=== PATIENT | female | born 1945 | race Caucasian/White ===

== ENCOUNTER 2018-08-12 15:19 | Emergency (ER) | payer MEDICARE, BC, OTHER ==
[~2018-08-12] VITALS: Ht 160 cm; Wt 89.5 kg
[2018-08-12] MEDS ORDERED: METF10004 PO (16:17)
[2018-08-12] MEDS ORDERED: VITATAB11 PO (16:17)
[2018-08-12] MEDS ORDERED: SERO50TA PO (16:17)
[2018-08-12] MEDS ORDERED: LISI10TA4 PO (16:17)
[2018-08-12] MEDS ORDERED: FLEC50HA PO (16:17)
[2018-08-12] MEDS ORDERED: DIGO0.12 PO (16:17)
[2018-08-12] MEDS ORDERED: BONI150T PO (16:17)
[2018-08-12] MEDS ORDERED: JANU100T PO (16:17)
[2018-08-12] MEDS ORDERED: ELIQ5TAB PO (16:17)
[2018-08-12] MEDS ORDERED: XALA0.007 OP (16:17)
[2018-08-12] MEDS ORDERED: VITA100T59 PO (16:17)
[2018-08-12] MEDS ORDERED: WOMETAB9 PO (16:17)
[2018-08-12] MEDS ORDERED: LORA-243 PO (16:17)
[2018-08-12] MEDS ORDERED: LEVO125T4 PO (16:17)
--- NOTE | 2018-08-12 16:51 | REP ---
Left knee series: Six views. History: Trauma. Findings: Single view of the left knee demonstrate patellofemoral, medial and lateral tibiofemoral osteoarthritis. There is medial compartment joint space narrowing and sclerosis in addition to spurring. Lateral view shows superior pole nonarticular spurring on the patella as well. There is no visible fracture or subluxation. Some diffuse osteopenia is noted. Impression: Three compartment osteoarthritis. No fracture seen. Electronically Signed by William Rivers MD 08/12/2018 04:42 P
[2018-08-12 17:04] VITALS: BP 163/86
== END 2018-08-12 17:18 | disposition home or self-care (01) ==
LOC: M ED 15:19 → EDBD 15:19 → M ED 17:18
DX: S01.81XA Laceration without foreign body of other part of head, initial encounter (principal); S00.91XA Abrasion of unspecified part of head, initial encounter; S80.02XA Contusion of left knee, initial encounter; I11.0 Hypertensive heart disease with heart failure; I50.9 Heart failure, unspecified; E11.9 Type 2 diabetes mellitus without complications; W10.1XXA Fall (on)(from) sidewalk curb, initial encounter; Y92.414 Local residential or business street as the place of occurrence of the external cause

== ENCOUNTER → 2022-12-22 | Outpatient (CLI) | payer MEDICARE, BC, OTHER ==
[~2022-12-22] MED LIST: BONI1TAB PO; DIGO0.123 PO; ELIQ5TAB PO; FLEC50HA PO; JANU100T PO; LEVO125T4 PO; LISI10TA22 PO; LORA-243 PO; METF10004 PO; SERO50TA PO; VITA100T59 PO; VITATAB11 PO; WOMETAB9 PO; XALA0.007 OP
[2022-12-22 16:51] LABS: ALBUMIN 3.1 G/DL (3.2-5.2); ALKALINE PHOSPHATASE 63 U/L (46-116); ALT/SGPT 12 U/L (7.0-40); AST/SGOT 15 U/L (<34); BILIRUBIN,TOTAL 0.5 MG/DL (0.3-1.2); BLOOD UREA NITROGEN 12 MG/DL (9-23); CALCIUM LEVEL 8.9 MG/DL (8.3-10.6); CARBON DIOXIDE LEVEL 32 MMOL/L (20-31); CHLORIDE LEVEL 104 MMOL/L (98-107); CHOLESTEROL LEVEL 132 MG/DL (<200); CHOLESTEROL RISK RATIO 2.56 (<5); CREATININE FOR GFR 0.94 MG/DL (0.55-1.30); GLOMERULAR FILTRATION RATE > 60.0 (>39); GLUCOSE, FASTING 165 MG/DL (74-106); HDL CHOLESTEROL 51.4 MG/DL (>40); LDL CHOLESTEROL 53.2 MG/DL (<100); NON-HDL-C 80.6 MG/DL; POTASSIUM SERUM 4.7 MMOL/L (3.5-5.1); SODIUM LEVEL 140 MMOL/L (136-145); TOTAL PROTEIN 6.2 G/DL (5.7-8.2); TRIGLYCERIDES LEVEL 137 MG/DL (<150)
[2022-12-22 17:45] LABS: HEMOGLOBIN A1c 6.7 % (4.0-6.0)
== END ==
LOC: M WUC 11:09
PROVIDERS: ATTEND Physician Assistant
DX: I10 Essential (primary) hypertension (principal); E11.9 Type 2 diabetes mellitus without complications; E78.5 Hyperlipidemia, unspecified

== ENCOUNTER → 2023-08-14 | Outpatient (CLI) | payer MEDICARE, BC, OTHER ==
[2023-08-14 13:12] LABS: HEMATOCRIT 46.3 % (36.0-47.0); HEMOGLOBIN 14.5 g/dl (12.0-15.5); MEAN CORPUSCULAR HEMOGLOBIN 30.3 pg (27.0-33.0); MEAN CORPUSCULAR HGB CONC 31.3 g/dl (32.0-36.5); MEAN CORPUSCULAR VOLUME 96.7 fl (80.0-96.0); PLATELET COUNT, AUTOMATED 285 10^3/uL (150-450); RED BLOOD COUNT 4.79 10^6/uL (4.00-5.40); WHITE BLOOD COUNT 9.8 10^3/uL (4.0-10.0)
[2023-08-14 13:43] LABS: HEMOGLOBIN A1c 7.2 % (4.0-6.0)
[2023-08-14 13:46] LABS: ALBUMIN 3.5 G/DL (3.2-5.2); BILIRUBIN,TOTAL 0.5 MG/DL (0.3-1.2); CALCIUM LEVEL 9.3 MG/DL (8.3-10.6); CHOLESTEROL RISK RATIO 2.85 (<5); CREATININE FOR GFR 1.1 MG/DL (0.55-1.30); GLOMERULAR FILTRATION RATE 51.3 (>39); HDL CHOLESTEROL 48.3 MG/DL (>40); LDL CHOLESTEROL 48.5 MG/DL (<100); NON-HDL-C 89.7 MG/DL; POTASSIUM SERUM 4.5 MMOL/L (3.5-5.1); THYROID STIMULATING HORMONE 1.678 uIU/ML (0.55-4.78); TOTAL PROTEIN 6.8 G/DL (5.7-8.2)
== END ==
LOC: M WUC 09:24
PROVIDERS: ATTEND Physician Assistant
DX: E11.9 Type 2 diabetes mellitus without complications (principal); I10 Essential (primary) hypertension; I48.0 Paroxysmal atrial fibrillation; E78.5 Hyperlipidemia, unspecified

== ENCOUNTER 2023-11-18 17:56 | Emergency (ER) | payer MEDICARE, BC ==
[~2023-11-18] VITALS: Ht 157.5 cm; Wt 86.4 kg
[2023-11-18] MEDS ORDERED: AMBI5TAB PO (18:56)
[2023-11-18] MEDS: methocarbamoL 750 MG TAB PO ONE (20:34)
[2023-11-18 21:56] VITALS: BP 125/66; TEMP 98; O2SAT 99
[2023-11-18] MEDS ORDERED: MEDR4PAK PO (21:57)
[2023-11-18] MEDS ORDERED: METH-1165 PO (21:57)
== END 2023-11-18 22:11 | disposition home or self-care (01) ==
LOC: M ED 17:56
DX: M54.30 Sciatica, unspecified side (principal); J02.9 Acute pharyngitis, unspecified; I48.91 Unspecified atrial fibrillation; E11.9 Type 2 diabetes mellitus without complications; I10 Essential (primary) hypertension; Z79.01 Long term (current) use of anticoagulants; Z79.84 Long term (current) use of oral hypoglycemic drugs; Z88.6 Allergy status to analgesic agent; Z88.1 Allergy status to other antibiotic agents; Z88.8 Allergy status to other drugs, medicaments and biological substances

== ENCOUNTER → 2024-01-19 | Outpatient (CLI) | payer MEDICARE, BC ==
[~2024-01-19] MED LIST changes: +AMBI5TAB PO; +MEDR4PAK PO; +METH-1165 PO
== END ==
LOC: M WUC 10:45
PROVIDERS: ATTEND Ophthalmology
DX: Z13.5 Encounter for screening for eye and ear disorders (principal)

== ENCOUNTER → 2024-01-19 | Outpatient (CLI) | payer MEDICARE, BC ==
[2024-01-19 14:46] LABS: VITAMIN B12 LEVEL > 2000 PG/ML (211-911)
[2024-01-20 07:35] LABS: TOTAL 25(OH) VITAMIN D 91.6 NG/ML (20.0-100.0)
[2024-01-20 07:36] LABS: HEMOGLOBIN A1c 6.4 % (4.0-6.0)
[2024-01-23 16:08] LABS: HOMOCYST(E)INE SERUM 10.7 umol/L (0.0-19.2); VITAMIN B6,PYRIDOXAL PHOSPHATE 15.9 ug/L (3.4-65.2)
== END ==
LOC: M WUC 10:42
PROVIDERS: ATTEND Physician Assistant
DX: E11.9 Type 2 diabetes mellitus without complications (principal); H40.1132 Primary open-angle glaucoma, bilateral, moderate stage; H35.3131 Nonexudative age-related macular degeneration, bilateral, early dry stage; H16.223 Keratoconjunctivitis sicca, not specified as Sjogren's, bilateral; Z13.5 Encounter for screening for eye and ear disorders; Z79.899 Other long term (current) drug therapy

== ENCOUNTER → 2024-06-23 | Outpatient (CLI) | payer MEDICARE, BC | LOC: M PLAIMG 10:48 | PROVIDERS: ATTEND Physician Assistant | DX: I48.0 Paroxysmal atrial fibrillation (principal); I27.81 Cor pulmonale (chronic) ==

== ENCOUNTER 2024-08-30 11:19 | Inpatient (IN) | payer MEDICARE, BC ==
[~2024-08-30] VITALS: Ht 160 cm; Wt 92.3 kg
[~2024-08-30 11:19] MED LIST changes: -XALA0.007 OP; +XALA0.007 OU
[2024-08-30 12:57] LABS: VENOUS BASE EXCESS 4.3 (-2.0-2.0); VENOUS HCO3 29.5 MMOL/L (23.0-27.0); VENOUS O2 SATURATION 46.6 % (60.0-80.0); VENOUS PARTIAL PRESSURE CO2 46.4 mmHg (38.0-50.0); VENOUS PARTIAL PRESSURE O2 26.1 mmHg (30.0-50.0); VENOUS PH 7.421 UNITS (7.330-7.430); VENOUS STANDARD HCO3 27.1 MMOL/L; VENOUS TOTAL CO2 30.9 MMOL/L (24.0-28.0)
[2024-08-30 13:09] LABS: BASO % 0.1 % (0.0-1.0); HEMATOCRIT 35.6 % (36.0-47.0); LYMPH # 0.9 10^3/uL (1.5-5.0); LYMPH % 6.4 % (24.0-44.0); MEAN CORPUSCULAR HEMOGLOBIN 31.6 pg (27.0-33.0); MEAN CORPUSCULAR HGB CONC 33.7 g/dl (32.0-36.5); MEAN CORPUSCULAR VOLUME 93.7 fl (80.0-96.0); MONO # 1.6 10^3/uL (0.0-0.8); MONO % 11.5 % (2.0-8.0); NEUTROPHILS # 11.6 10^3/uL (1.5-8.5); NEUTROPHILS % 81.5 % (36.0-66.0); PLATELET COUNT, AUTOMATED 164 10^3/uL (150-450); WHITE BLOOD COUNT 14.2 10^3/uL (4.0-10.0)
[2024-08-30 13:35] LABS: ALBUMIN 2.6 G/DL (3.2-5.2); BILIRUBIN,DIRECT 0.3 MG/DL (<0.4); BILIRUBIN,TOTAL 0.8 MG/DL (0.3-1.2); CREATININE FOR GFR 1.11 MG/DL (0.55-1.30); GLOMERULAR FILTRATION RATE 50.6 (>39); POTASSIUM SERUM 3.8 MMOL/L (3.5-5.1); TOTAL PROTEIN 6.3 G/DL (5.7-8.2)
[2024-08-30 13:37] LABS: THYROID STIMULATING HORMONE 10.4 uIU/ML (0.55-4.78)
[2024-08-30] MEDS ORDERED: ISOVUE-370 76% 100ML VIAL As Ordered ONE (14:02)
[2024-08-30 14:36] LABS: KETONE, URINE AUTO RFX TRACE mg/dL (NEGATIVE); LEUKOCYTE ESTERASE UR AUTO RFX 3+ (NEGATIVE); MUCUS, URINE RFX SMALL (NEGATIVE); NITRITE, URINE AUTO RFX NEGATIVE (NEGATIVE); RBC, URINE AUTO RFX 45 /HPF (0-3); SQUAM EPITHELIAL CELL UR AURFX 1 /HPF (0-6); WBC, URINE AUTO RFX TNTC /HPF (0-3)
[2024-08-30] MEDS: cefTRIAXone SOD 2 GM in DEXTROSE 5% (D5W) ADV/MINI-BAG 50 ML IV ONE (15:06)
[2024-08-30] MEDS ORDERED: LISI5TAB11 PO (15:46)
[2024-08-30] MEDS ORDERED: IBAN150T10 PO (15:46)
[2024-08-30] MEDS ORDERED: ASCO500T PO (15:46)
[2024-08-30] MEDS ORDERED: VENL150C43 PO (15:48)
[2024-08-30] MEDS ORDERED: BUPR-71 PO (15:48)
[2024-08-30] MEDS ORDERED: FARX1TAB5 PO (15:48)
[2024-08-30] MEDS ORDERED: LORA-1041 PO (15:48)
[2024-08-30] MEDS ORDERED: SIMV40TA20 PO (15:48)
[2024-08-30] MEDS ORDERED: METO1TAB7 PO (15:48)
[2024-08-30] MEDS ORDERED: HOME MED LIST COMPLETE! XX SCH (15:50)
[2024-08-30 16:00] LABS: FREE T4 0.54 NG/DL (0.89-1.76)
[2024-08-30] MEDS: ACETAMINOPHEN 500 MG TAB PO ONE (16:17)
[2024-08-30] MEDS ORDERED: GLUCOSE 4 GM CHEW PO PRN (16:55)
[2024-08-30] MEDS ORDERED: GLUCAGON INJ 1MG VIAL SC PRN (16:55)
[2024-08-30] MEDS ORDERED: DEXTROSE 50% 50ML SYRINGE IV PRN (16:55)
[2024-08-30] MEDS: INSULIN LISPRO (NovoLOG) PER UNIT SC SCH ×2 (17:30→21:00)
[2024-08-30] MEDS: APIXABAN 5 MG TAB (ELIQUIS) PO SCH (20:16)
[2024-08-30] MEDS: METOPROLOL SUCC (TopROL XL) 50MG **XL** TAB PO SCH (20:16)
[2024-08-30] MEDS: LR 1,000 ML IV SCH (20:16)
[2024-08-30] MEDS: QUEtiapine FUMARATE 50MG TAB PO SCH (20:16)
[2024-08-30 20:59] VITALS: BP 122/54; TEMP 97.7; O2SAT 95
[2024-08-30] MEDS ORDERED: zolPIDEM TARTRATE 5 MG TAB PO PRN (21:00)
[2024-08-30] MEDS: LATANOPROST 0.005% OPHTH SOLN 2.5 ML OU SCH (21:51)
[2024-08-31] VITALS (8 sets, daily range): BP systolic 97–142; BP diastolic 53–86; TEMP 96.8–97.9; O2SAT 93–96
[2024-08-31] MEDS: LEVOTHYROXINE 150MCG TABLET (0.15MG) PO SCH (05:21)
[2024-08-31] MEDS ORDERED: LEVOTHYROXINE 125MCG TABLET (0.125MG) PO SCH (06:00)
[2024-08-31 06:19] LABS: HEMATOCRIT 37.3 % (36.0-47.0); HEMOGLOBIN 12.5 g/dl (12.0-15.5); MEAN CORPUSCULAR HEMOGLOBIN 31.5 pg (27.0-33.0); MEAN CORPUSCULAR HGB CONC 33.5 g/dl (32.0-36.5); PLATELET COUNT, AUTOMATED 171 10^3/uL (150-450); RED BLOOD COUNT 3.97 10^6/uL (4.00-5.40); WHITE BLOOD COUNT 13.1 10^3/uL (4.0-10.0)
[2024-08-31 06:47] LABS: CALCIUM LEVEL 8.8 MG/DL (8.3-10.6); CREATININE FOR GFR 1.12 MG/DL (0.55-1.30); GLOMERULAR FILTRATION RATE 50.1 (>39); POTASSIUM SERUM 3.4 MMOL/L (3.5-5.1)
[2024-08-31] MEDS: buPROPion **SR TABLET** (ZYBAN) 150MG PO SCH (08:50)
[2024-08-31] MEDS: lisinopriL 5 MG TAB PO SCH (08:51)
[2024-08-31] MEDS: ASCORBIC ACID 500 MG TAB PO SCH (08:51)
[2024-08-31] MEDS: SIMVASTATIN 40 MG TAB PO SCH (08:51)
[2024-08-31] MEDS: VENLAFAXINE **XR** 75MG CAPSULE PO SCH (08:52)
[2024-08-31] MEDS ORDERED: cefTRIAXone SOD 1 GM in DEXTROSE 5% (D5W) ADV/MINI-BAG 50 ML IV SCH (09:00)
[2024-08-31] MEDS: PIPERACILLIN/TAZOBACTAM SOD 3.375 GM in DEXTROSE 5% (D5W) ADV/MINI-BAG 50 ML IV SCH (11:17)
[2024-08-31] MEDS: ACETAMINOPHEN 325 MG TAB PO PRN (12:29)
[2024-08-31 13:22] LABS: PROCALCITONIN 1.13 ng/ml
[2024-09-01] VITALS (8 sets, daily range): BP systolic 94–139; BP diastolic 50–64; TEMP 97–97.3; O2SAT 90–96
[2024-09-01 06:18] LABS: HEMATOCRIT 31.8 % (36.0-47.0); HEMOGLOBIN 10.7 g/dl (12.0-15.5); MEAN CORPUSCULAR HEMOGLOBIN 31.4 pg (27.0-33.0); MEAN CORPUSCULAR HGB CONC 33.6 g/dl (32.0-36.5); MEAN CORPUSCULAR VOLUME 93.3 fl (80.0-96.0); PLATELET COUNT, AUTOMATED 179 10^3/uL (150-450); RED BLOOD COUNT 3.41 10^6/uL (4.00-5.40); WHITE BLOOD COUNT 9.8 10^3/uL (4.0-10.0)
[2024-09-01 06:38] LABS: CALCIUM LEVEL 8.3 MG/DL (8.3-10.6); CREATININE FOR GFR 1.39 MG/DL (0.55-1.30); POTASSIUM SERUM 3.5 MMOL/L (3.5-5.1)
[2024-09-01] MEDS: LR 1,000 ML IV SCH (09:24)
[2024-09-01] MEDS: AMOXICILLIN 500 MG CAP PO SCH (09:42)
[2024-09-02 04:00] VITALS: BP 121/62; TEMP 97.7; O2SAT 95
[2024-09-02 05:54] LABS: HEMATOCRIT 30.5 % (36.0-47.0); HEMOGLOBIN 10.3 g/dl (12.0-15.5); MEAN CORPUSCULAR HEMOGLOBIN 31.7 pg (27.0-33.0); MEAN CORPUSCULAR HGB CONC 33.8 g/dl (32.0-36.5); MEAN CORPUSCULAR VOLUME 93.8 fl (80.0-96.0); PLATELET COUNT, AUTOMATED 198 10^3/uL (150-450); RED BLOOD COUNT 3.25 10^6/uL (4.00-5.40); WHITE BLOOD COUNT 8.1 10^3/uL (4.0-10.0)
[2024-09-02 06:10] LABS: CALCIUM LEVEL 7.6 MG/DL (8.3-10.6); CREATININE FOR GFR 1.19 MG/DL (0.55-1.30); GLOMERULAR FILTRATION RATE 46.7 (>39); POTASSIUM SERUM 3.5 MMOL/L (3.5-5.1)
[2024-09-02] MEDS ORDERED: LEVO150T7 PO (08:42)
[2024-09-02] MEDS ORDERED: AMOX500C PO (08:42)
[2024-09-02 12:00] VITALS: BP 133/59; TEMP 97.7; O2SAT 97
== END 2024-09-02 14:03 | disposition home or self-care (01) | DRG 872 ==
LOC: M ED 11:19 → EDBD 11:19 → M ED INP 16:52 → M MSPAV 20:59
PROVIDERS: ADMIT Student in an Organized Health Care Education/Training Program; ATTEND Student in an Organized Health Care Education/Training Program
DX: A41.9 Sepsis, unspecified organism (principal); N12 Tubulo-interstitial nephritis, not specified as acute or chronic; F39 Unspecified mood [affective] disorder; I48.91 Unspecified atrial fibrillation; Z66 Do not resuscitate; E03.9 Hypothyroidism, unspecified; E11.22 Type 2 diabetes mellitus with diabetic chronic kidney disease; N18.9 Chronic kidney disease, unspecified; I12.9 Hypertensive chronic kidney disease with stage 1 through stage 4 chronic kidney disease, or unspecified chronic kidney disease; G47.00 Insomnia, unspecified; H91.90 Unspecified hearing loss, unspecified ear; B96.20 Unspecified Escherichia coli [E. coli] as the cause of diseases classified elsewhere; H40.9 Unspecified glaucoma; E78.5 Hyperlipidemia, unspecified; Z79.01 Long term (current) use of anticoagulants; Z79.890 Hormone replacement therapy; Z79.84 Long term (current) use of oral hypoglycemic drugs; Z79.899 Other long term (current) drug therapy; Z88.2 Allergy status to sulfonamides; Z88.1 Allergy status to other antibiotic agents; Z88.8 Allergy status to other drugs, medicaments and biological substances

== ENCOUNTER 2024-10-12 12:27 | Inpatient (IN) | payer MEDICARE, BC ==
[~2024-10-12] VITALS: Ht 165.1 cm; Wt 85.6 kg
[~2024-10-12 12:27] MED LIST changes: +AMOX500C PO; +ASCO500T PO; +BUPR-71 PO; +FARX1TAB5 PO; +IBAN150T10 PO; +LEVO150T7 PO; +LISI5TAB11 PO; +LORA-1041 PO; +METO1TAB7 PO; +SIMV40TA20 PO; +VENL150C43 PO
[2024-10-12 13:56] LABS: BASO % 0.1 % (0.0-1.0); EOS % 0.1 % (0.0-3.0); HEMOGLOBIN 13.1 g/dl (12.0-15.5); LYMPH # 0.6 10^3/uL (1.5-5.0); LYMPH % 3.5 % (24.0-44.0); MEAN CORPUSCULAR HEMOGLOBIN 30.5 pg (27.0-33.0); MEAN CORPUSCULAR HGB CONC 32.8 g/dl (32.0-36.5); MONO # 0.9 10^3/uL (0.0-0.8); MONO % 5.7 % (2.0-8.0); NEUTROPHILS # 14.9 10^3/uL (1.5-8.5); NEUTROPHILS % 90.1 % (36.0-66.0); PLATELET COUNT, AUTOMATED 181 10^3/uL (150-450); WHITE BLOOD COUNT 16.6 10^3/uL (4.0-10.0)
[2024-10-12] MEDS: ACETAMINOPHEN 325 MG TAB PO ONE (14:18)
[2024-10-12 14:35] LABS: ALBUMIN 2.9 G/DL (3.2-5.2); ALKALINE PHOSPHATASE 65 U/L (35-104); ALT/SGPT 19 U/L (7.0-40); AST/SGOT 15 U/L (<34); BILIRUBIN,TOTAL 0.9 MG/DL (0.3-1.2); BLOOD UREA NITROGEN 12 MG/DL (9-23); CARBON DIOXIDE LEVEL 28 MMOL/L (20-31); CHLORIDE LEVEL 96 MMOL/L (98-107); CREATININE FOR GFR 0.72 MG/DL (0.55-1.30); GLOMERULAR FILTRATION RATE > 60.0 (>39); GLUCOSE, FASTING 244 MG/DL (74-106); POTASSIUM SERUM 3.6 MMOL/L (3.5-5.1); SODIUM LEVEL 135 MMOL/L (136-145); TOTAL PROTEIN 6.9 G/DL (5.7-8.2)
[2024-10-12 14:43] LABS: PROTEIN, URINE MANUAL REFLEX 3+ mg/dL (NEGATIVE); SP GRAVITY,URINE MANUAL REFLEX 1.015 (1.002-1.035)
[2024-10-12 14:44] LABS: KETONE, URINE MANUAL REFLEX 1+ mg/dL (NEGATIVE); NITRITE, URINE MANUAL RFX NEGATIVE (NEGATIVE); UROBILINOGEN, UA MANUAL REFLEX NORMAL (NORMAL)
[2024-10-12 14:57] LABS: HYALINE CAST, URINE RFX NONE SEEN /lpf (0-1); MUCUS, URINE REFLEX LARGE AMOUNT (NEGATIVE); SQUAMOUS EPITHELIAL URINE RFX SMALL AMOUNT /hpf (SMALL AMT)
[2024-10-12 14:58] LABS: MICROSCOPIC EXAM RFX PERFORMED
[2024-10-12 15:10] LABS: ERYTHROCYTE SEDIMENTATION RATE 60 mm/hr (0-30)
[2024-10-12 15:11] LABS: VENOUS BASE EXCESS 4.5 (-2.0-2.0); VENOUS HCO3 27.6 MMOL/L (23.0-27.0); VENOUS O2 SATURATION 95.6 % (60.0-80.0); VENOUS PARTIAL PRESSURE CO2 35.9 mmHg (38.0-50.0); VENOUS PARTIAL PRESSURE O2 77.1 mmHg (30.0-50.0); VENOUS PH 7.504 UNITS (7.330-7.430); VENOUS STANDARD HCO3 28.5 MMOL/L; VENOUS TOTAL CO2 28.7 MMOL/L (24.0-28.0)
[2024-10-12 15:17] LABS: PROCALCITONIN 2.91 ng/ml
[2024-10-12] MEDS: cefTRIAXone SOD 2 GM in DEXTROSE 5% (D5W) ADV/MINI-BAG 50 ML IV ONE (15:18)
[2024-10-12] MEDS: NS (Normal Saline) 0.9% 1,710 ML in IV 1 EA IV STA (15:19)
[2024-10-12 15:27] LABS: C REACTIVE PROTEIN QUANTITATIV 30.09 MG/DL (<1.0)
[2024-10-12 15:53] LABS: LIPASE 23 U/L (12-53)
[2024-10-12 15:55] LABS: BILIRUBIN,DIRECT 0.3 MG/DL (<0.4)
[2024-10-12 15:56] LABS: OSMOLALITY SERUM 288 MOSM/KG (280-301)
[2024-10-12] MEDS ORDERED: MOM 30ML SUSPENSION UDC PO PRN (16:00)
[2024-10-12 16:15] LABS: HEMOGLOBIN A1c 6.7 % (4.0-6.0)
[2024-10-12] MEDS ORDERED: ISOVUE-370 76% 100ML VIAL As Ordered ONE (16:21)
[2024-10-12] MEDS ORDERED: GLUCOSE 4 GM CHEW PO PRN (16:30)
[2024-10-12] MEDS ORDERED: GLUCAGON INJ 1MG VIAL SC PRN (16:30)
[2024-10-12] MEDS ORDERED: DEXTROSE 50% 50ML SYRINGE IV PRN (16:30)
[2024-10-12] MEDS ORDERED: FLEC25TA PO (16:45)
[2024-10-12] MEDS ORDERED: HOME MED LIST COMPLETE! XX SCH (16:50)
[2024-10-12] MEDS: lisinopriL 5 MG TAB PO SCH (18:24)
[2024-10-12] MEDS: INSULIN LISPRO (NovoLOG) PER UNIT SC SCH ×2 (18:25→22:31)
[2024-10-12 20:24] LABS: THYROID STIMULATING HORMONE 0.671 uIU/ML (0.55-4.78)
[2024-10-12] MEDS: LATANOPROST 0.005% OPHTH SOLN 2.5 ML OU SCH (22:41)
[2024-10-12] MEDS: FLECAINIDE 50MG TABLET PO SCH (22:41)
[2024-10-12] MEDS: DOCUSATE SODIUM 100MG CAPSULE PO SCH (22:44)
[2024-10-12] MEDS: METOPROLOL SUCC (TopROL XL) 50MG **XL** TAB PO SCH (22:45)
[2024-10-12] MEDS: APIXABAN 5 MG TAB (ELIQUIS) PO SCH (22:45)
[2024-10-13] VITALS (7 sets, daily range): BP systolic 150–190; BP diastolic 70–94; TEMP 97.5–98.6; O2SAT 93–99
[2024-10-13 05:09] LABS: BASO % 0.2 % (0.0-1.0); HEMATOCRIT 38.7 % (36.0-47.0); HEMOGLOBIN 12.5 g/dl (12.0-15.5); LYMPH # 1.1 10^3/uL (1.5-5.0); LYMPH % 5.7 % (24.0-44.0); MEAN CORPUSCULAR HEMOGLOBIN 30.6 pg (27.0-33.0); MEAN CORPUSCULAR HGB CONC 32.3 g/dl (32.0-36.5); MEAN CORPUSCULAR VOLUME 94.6 fl (80.0-96.0); MONO # 1.3 10^3/uL (0.0-0.8); MONO % 6.6 % (2.0-8.0); NEUTROPHILS # 16.6 10^3/uL (1.5-8.5); NEUTROPHILS % 86.8 % (36.0-66.0); PLATELET COUNT, AUTOMATED 167 10^3/uL (150-450); RED BLOOD COUNT 4.09 10^6/uL (4.00-5.40); WHITE BLOOD COUNT 19.1 10^3/uL (4.0-10.0)
[2024-10-13] MEDS: LEVOTHYROXINE 150MCG TABLET (0.15MG) PO SCH (05:35)
[2024-10-13] MEDS: ACETAMINOPHEN 325 MG TAB PO PRN (05:35)
[2024-10-13 05:36] LABS: BLOOD UREA NITROGEN 16 MG/DL (9-23); CALCIUM LEVEL 8.5 MG/DL (8.3-10.6); CARBON DIOXIDE LEVEL 26 MMOL/L (20-31); CHLORIDE LEVEL 97 MMOL/L (98-107); CREATININE FOR GFR 0.64 MG/DL (0.55-1.30); GLOMERULAR FILTRATION RATE > 60.0 (>39); GLUCOSE, FASTING 214 MG/DL (74-106); POTASSIUM SERUM 3.3 MMOL/L (3.5-5.1); SODIUM LEVEL 136 MMOL/L (136-145)
[2024-10-13] MEDS: LORATADINE 10 MG TAB PO SCH (07:59)
[2024-10-13] MEDS: POTASSIUM CHLORIDE 10MEQ SR TABLET PO ONE (07:59)
[2024-10-13] MEDS: buPROPion **SR TABLET** (ZYBAN) 150MG PO SCH (07:59)
[2024-10-13] MEDS: VENLAFAXINE **XR** 75MG CAPSULE PO SCH (07:59)
[2024-10-13] MEDS: SIMVASTATIN 40 MG TAB PO SCH (08:00)
[2024-10-13] MEDS: ASCORBIC ACID 500 MG TAB PO SCH (08:00)
[2024-10-13] MEDS: KETOROLAC 30 MG/ML 1ML VIAL IV PRN (12:17)
[2024-10-13] MEDS: cefTRIAXone SOD 2 GM in DEXTROSE 5% (D5W) ADV/MINI-BAG 50 ML IV SCH (15:22)
[2024-10-13] MEDS: LORazepam 1 MG TAB PO ONE (17:40)
[2024-10-13] MEDS ORDERED: PROHANCE 279.3MG/ML 5ML VIAL As Ordered ONE (18:08)
[2024-10-13] MEDS ORDERED: PROHANCE 279.3MG/ML 15ML VIAL As Ordered ONE (18:09)
[2024-10-14 00:46] VITALS: BP 176/72
[2024-10-14] MEDS: KETOROLAC 30 MG/ML 1ML VIAL IV PRN (00:53)
[2024-10-14] MEDS: LISINOPRIL *2.5 MG* TAB PO ONE (01:45)
[2024-10-14 03:27] VITALS: BP 158/83; TEMP 99.2; O2SAT 95
[2024-10-14 06:23] LABS: BASO % 0.2 % (0.0-1.0); EOS # 0.1 10^3/uL (0.0-0.5); EOS % 0.4 % (0.0-3.0); HEMATOCRIT 33.9 % (36.0-47.0); LYMPH # 1.4 10^3/uL (1.5-5.0); LYMPH % 9.8 % (24.0-44.0); MEAN CORPUSCULAR HGB CONC 32.4 g/dl (32.0-36.5); MEAN CORPUSCULAR VOLUME 92.4 fl (80.0-96.0); MONO # 1.5 10^3/uL (0.0-0.8); MONO % 10.7 % (2.0-8.0); NEUTROPHILS % 78.3 % (36.0-66.0); PLATELET COUNT, AUTOMATED 164 10^3/uL (150-450); RED BLOOD COUNT 3.67 10^6/uL (4.00-5.40)
[2024-10-14 06:38] LABS: BLOOD UREA NITROGEN 21 MG/DL (9-23); CALCIUM LEVEL 8.1 MG/DL (8.3-10.6); CARBON DIOXIDE LEVEL 28 MMOL/L (20-31); CHLORIDE LEVEL 100 MMOL/L (98-107); CREATININE FOR GFR 0.76 MG/DL (0.55-1.30); GLOMERULAR FILTRATION RATE > 60.0 (>39); GLUCOSE, FASTING 182 MG/DL (74-106); POTASSIUM SERUM 3.6 MMOL/L (3.5-5.1); SODIUM LEVEL 137 MMOL/L (136-145)
[2024-10-14 12:00] VITALS: BP 140/82; TEMP 98; O2SAT 96
[2024-10-14] MEDS: MORPHINE 4 MG/ML 1ML VIAL IV PRN (16:28)
[2024-10-14] MEDS: ACETAMINOPHEN 325 MG TAB PO SCH (18:54)
[2024-10-14] MEDS: KETOROLAC 30 MG/ML 1ML VIAL IV SCH (18:55)
[2024-10-14 19:43] VITALS: BP 144/71; TEMP 98.6; O2SAT 94
[2024-10-14] MEDS: LORazepam 2 MG TAB PO ONE ×2 (20:28→21:07)
[2024-10-14] MEDS: LIDOCAINE 5% (LIDODERM) PATCH TD SCH (21:38)
[2024-10-15] VITALS (8 sets, daily range): BP systolic 149–157; BP diastolic 68–77; TEMP 97–99.2; O2SAT 86–96
[2024-10-15] MEDS: VANCOMYCIN HCL 1,000 MG, VIAL MATE ADAPTER 1 EACH in NS 250 ML IV ONE (01:30)
[2024-10-15 06:08] LABS: BASO % 0.3 % (0.0-1.0); EOS # 0.2 10^3/uL (0.0-0.5); EOS % 1.8 % (0.0-3.0); HEMATOCRIT 33.2 % (36.0-47.0); HEMOGLOBIN 10.8 g/dl (12.0-15.5); LYMPH # 1.4 10^3/uL (1.5-5.0); LYMPH % 15.1 % (24.0-44.0); MEAN CORPUSCULAR HEMOGLOBIN 30.4 pg (27.0-33.0); MEAN CORPUSCULAR HGB CONC 32.5 g/dl (32.0-36.5); MEAN CORPUSCULAR VOLUME 93.5 fl (80.0-96.0); MONO # 1.1 10^3/uL (0.0-0.8); MONO % 12.4 % (2.0-8.0); NEUTROPHILS # 6.4 10^3/uL (1.5-8.5); NEUTROPHILS % 69.9 % (36.0-66.0); PLATELET COUNT, AUTOMATED 176 10^3/uL (150-450); RED BLOOD COUNT 3.55 10^6/uL (4.00-5.40); WHITE BLOOD COUNT 9.2 10^3/uL (4.0-10.0)
[2024-10-15 06:42] LABS: BLOOD UREA NITROGEN 21 MG/DL (9-23); CALCIUM LEVEL 7.8 MG/DL (8.3-10.6); CARBON DIOXIDE LEVEL 28 MMOL/L (20-31); CHLORIDE LEVEL 102 MMOL/L (98-107); CREATININE FOR GFR 0.77 MG/DL (0.55-1.30); GLOMERULAR FILTRATION RATE > 60.0 (>39); GLUCOSE, FASTING 186 MG/DL (74-106); POTASSIUM SERUM 3.7 MMOL/L (3.5-5.1); SODIUM LEVEL 138 MMOL/L (136-145)
[2024-10-15 08:22] LABS: C REACTIVE PROTEIN QUANTITATIV 15.93 MG/DL (<1.0)
[2024-10-15 08:27] LABS: ERYTHROCYTE SEDIMENTATION RATE 62 mm/hr (0-30)
[2024-10-15 08:29] LABS: PROCALCITONIN 0.97 ng/ml
[2024-10-15 08:32] LABS: ALBUMIN 2.2 G/DL (3.2-5.2); ALKALINE PHOSPHATASE 53 U/L (35-104); ALT/SGPT 20 U/L (7.0-40); AST/SGOT 17 U/L (<34); BILIRUBIN,DIRECT 0.1 MG/DL (<0.4); BILIRUBIN,TOTAL 0.3 MG/DL (0.3-1.2); TOTAL PROTEIN 5.5 G/DL (5.7-8.2)
[2024-10-15] MEDS: cefTRIAXone SOD 2 GM in DEXTROSE 5% (D5W) ADV/MINI-BAG 50 ML IV SCH (12:34)
[2024-10-15] MEDS: GABAPENTIN 100 MG CAP PO SCH (15:50)
[2024-10-15] MEDS: ACETAMINOPHEN 500 MG TAB PO SCH (20:05)
[2024-10-15] MEDS: ENOXAPARIN 80MG/0.8ML SYRINGE (J1650 PER 10MG) SC SCH (21:47)
[2024-10-15] MEDS: oxyCODONE 15MG CR TAB PO SCH (21:50)
[2024-10-16 04:20] VITALS: BP 119/68; TEMP 97; O2SAT 91
[2024-10-16 05:55] LABS: BASO # 0.1 10^3/uL (0.0-0.2); BASO % 0.6 % (0.0-1.0); EOS # 0.3 10^3/uL (0.0-0.5); HEMATOCRIT 34.4 % (36.0-47.0); LYMPH # 2.2 10^3/uL (1.5-5.0); LYMPH % 21.4 % (24.0-44.0); MEAN CORPUSCULAR HEMOGLOBIN 30.1 pg (27.0-33.0); MEAN CORPUSCULAR VOLUME 94.2 fl (80.0-96.0); MONO # 1.2 10^3/uL (0.0-0.8); MONO % 11.2 % (2.0-8.0); NEUTROPHILS # 6.5 10^3/uL (1.5-8.5); NEUTROPHILS % 63.2 % (36.0-66.0); PLATELET COUNT, AUTOMATED 225 10^3/uL (150-450); RED BLOOD COUNT 3.65 10^6/uL (4.00-5.40); WHITE BLOOD COUNT 10.4 10^3/uL (4.0-10.0)
[2024-10-16 06:18] LABS: BLOOD UREA NITROGEN 21 MG/DL (9-23); CARBON DIOXIDE LEVEL 27 MMOL/L (20-31); CHLORIDE LEVEL 102 MMOL/L (98-107); CREATININE FOR GFR 0.82 MG/DL (0.55-1.30); GLOMERULAR FILTRATION RATE > 60.0 (>39); GLUCOSE, FASTING 159 MG/DL (74-106); POTASSIUM SERUM 3.7 MMOL/L (3.5-5.1); SODIUM LEVEL 139 MMOL/L (136-145)
[2024-10-16] MEDS ORDERED: oxyCODONE 15MG CR TAB PO ONE (11:30)
[2024-10-16] MEDS: KETOROLAC 30 MG/ML 1ML VIAL IV SCH (11:39)
[2024-10-16 12:00] VITALS: BP 161/78; TEMP 97; O2SAT 94
[2024-10-16] MEDS ORDERED: NALOXONE INJ 0.4MG/1ML VIAL IV PRN (17:15)
[2024-10-16] MEDS: MIRALAX *UNIT DOSE* 17GM PACKET PO SCH (17:56)
[2024-10-16] MEDS: MOM 30ML SUSPENSION UDC PO SCH (17:56)
[2024-10-16] MEDS: MORPHINE 2 MG/ML 1ML VIAL IV PRN (17:57)
[2024-10-16] MEDS ORDERED: CEFTINJ2 IV (18:38)
[2024-10-16 19:58] VITALS: BP 129/55; TEMP 97.7; O2SAT 90
[2024-10-16] MEDS ORDERED: oxyCODONE 15MG CR TAB PO SCH (21:00)
[2024-10-16] MEDS: oxyCODONE 15MG CR TAB PO SCH (21:19)
[2024-10-16 21:20] VITALS: BP 129/55
== END 2024-10-16 23:24 | disposition short-term general hospital (02) | DRG 871 ==
LOC: M ED 12:27 → EDBD 12:27 → M ED INP 15:59 → M MSPAV 10-13 00:21
PROVIDERS: ADMIT Student in an Organized Health Care Education/Training Program; ATTEND Student in an Organized Health Care Education/Training Program
PROC: B246ZZZ Ultrasonography of Right and Left Heart (ICD-10-PCS; principal; 2024-10-16)
DX: A41.9 Sepsis, unspecified organism (principal); G93.41 Metabolic encephalopathy; G06.1 Intraspinal abscess and granuloma; E87.20 Acidosis, unspecified; N39.0 Urinary tract infection, site not specified; I48.0 Paroxysmal atrial fibrillation; E11.9 Type 2 diabetes mellitus without complications; E03.9 Hypothyroidism, unspecified; I10 Essential (primary) hypertension; M54.50 Low back pain, unspecified; B96.20 Unspecified Escherichia coli [E. coli] as the cause of diseases classified elsewhere; G47.00 Insomnia, unspecified; H40.9 Unspecified glaucoma; R65.20 Severe sepsis without septic shock; M48.061 Spinal stenosis, lumbar region without neurogenic claudication; M81.0 Age-related osteoporosis without current pathological fracture; E78.5 Hyperlipidemia, unspecified; Z66 Do not resuscitate; Z79.01 Long term (current) use of anticoagulants; Z79.890 Hormone replacement therapy; Z79.84 Long term (current) use of oral hypoglycemic drugs; Z79.899 Other long term (current) drug therapy; Z88.2 Allergy status to sulfonamides; Z88.1 Allergy status to other antibiotic agents; Z88.8 Allergy status to other drugs, medicaments and biological substances; Z98.49 Cataract extraction status, unspecified eye; Z87.891 Personal history of nicotine dependence

== ENCOUNTER → 2024-12-09 | Outpatient (REF) | payer MEDICARE, OTHER ==
[~2024-12-09] MED LIST changes: +CEFTINJ2 IV; +FLEC25TA PO
[2024-12-09 10:26] LABS: APPEARANCE, URINE HAZY (CLEAR); BACTERIA, URINE AUTO 1+ (NEGATIVE); BILIRUBIN, URINE AUTO NEGATIVE (NEGATIVE); BLOOD, URINE BLOOD NEGATIVE (NEGATIVE); COLOR, URINE YELLOW (YELLOW); GLUCOSE, URINE (UA) AUTO NEGATIVE (NEGATIVE); KETONE, URINE AUTO NEGATIVE (NEGATIVE); LEUKOCYTE ESTERASE, URINE AUTO TRACE (NEGATIVE); MUCUS, URINE SMALL (NEGATIVE); NITRITE, URINE AUTO NEGATIVE (NEGATIVE); PROTEIN, URINE AUTO NEGATIVE (NEGATIVE); RBC, URINE AUTO 1 /HPF (0-3); SPECIFIC GRAVITY URINE AUTO 1.011 (1.002-1.035); SQUAMOUS EPITHELIAL CELL UR AU 1 /HPF (0-6); UROBILINOGEN, URINE AUTO 0.2 mg/dL (0.0-2.0); WBC, URINE AUTO 5 /HPF (0-3)
== END ==
LOC: M LAB REF 09:35
PROVIDERS: ATTEND Physician Assistant
DX: N39.0 Urinary tract infection, site not specified (principal)

== ENCOUNTER 2024-12-11 13:18 | Emergency (ER) | payer MEDICARE, OTHER ==
[~2024-12-11] VITALS: Ht 160 cm; Wt 81.8 kg
[2024-12-11 13:48] LABS: BASO % 0.4 % (0.0-1.0); EOS # 0.1 10^3/uL (0.0-0.5); EOS % 0.9 % (0.0-3.0); HEMATOCRIT 38.3 % (36.0-47.0); HEMOGLOBIN 12.5 g/dl (12.0-15.5); LYMPH # 1.4 10^3/uL (1.5-5.0); LYMPH % 18.4 % (24.0-44.0); MEAN CORPUSCULAR HEMOGLOBIN 29.3 pg (27.0-33.0); MEAN CORPUSCULAR HGB CONC 32.6 g/dl (32.0-36.5); MEAN CORPUSCULAR VOLUME 89.7 fl (80.0-96.0); MONO # 0.7 10^3/uL (0.0-0.8); MONO % 9.2 % (2.0-8.0); NEUTROPHILS # 5.3 10^3/uL (1.5-8.5); NEUTROPHILS % 70.8 % (36.0-66.0); PLATELET COUNT, AUTOMATED 233 10^3/uL (150-450); RED BLOOD COUNT 4.27 10^6/uL (4.00-5.40); WHITE BLOOD COUNT 7.5 10^3/uL (4.0-10.0)
[2024-12-11 14:15] LABS: BILIRUBIN,DIRECT 0.1 MG/DL (<0.4); BILIRUBIN,TOTAL 0.4 MG/DL (0.3-1.2); CALCIUM LEVEL 8.7 MG/DL (8.3-10.6); CREATININE FOR GFR 0.79 MG/DL (0.55-1.30); GLOMERULAR FILTRATION RATE 76.5 (>39); TOTAL PROTEIN 6.1 G/DL (5.7-8.2)
[2024-12-11 14:19] LABS: C REACTIVE PROTEIN QUANTITATIV 0.68 MG/DL (<1.0)
[2024-12-11 14:25] LABS: KETONE, URINE AUTO RFX NEGATIVE (NEGATIVE); LEUKOCYTE ESTERASE UR AUTO RFX NEGATIVE (NEGATIVE); NITRITE, URINE AUTO RFX NEGATIVE (NEGATIVE); RBC, URINE AUTO RFX 0 /HPF (0-3); SQUAM EPITHELIAL CELL UR AURFX 1 /HPF (0-6); WBC, URINE AUTO RFX 1 /HPF (0-3)
[2024-12-11 14:28] LABS: ERYTHROCYTE SEDIMENTATION RATE 21 mm/hr (0-30)
[2024-12-11 14:31] LABS: PROCALCITONIN 0.12 ng/ml
[2024-12-11 16:21] VITALS: BP 162/72; TEMP 98.3; O2SAT 97
== END 2024-12-11 16:23 | disposition home or self-care (01) ==
LOC: M ED 13:18 → EDBD 13:18 → M ED 16:23
DX: M54.50 Low back pain, unspecified (principal); I48.91 Unspecified atrial fibrillation; E11.9 Type 2 diabetes mellitus without complications; M47.896 Other spondylosis, lumbar region; Z79.84 Long term (current) use of oral hypoglycemic drugs; Z79.899 Other long term (current) drug therapy; Z88.1 Allergy status to other antibiotic agents; Z88.6 Allergy status to analgesic agent; Z88.2 Allergy status to sulfonamides; Z88.8 Allergy status to other drugs, medicaments and biological substances